=== PATIENT | male | born 1955 | race Caucasian/White ===

== ENCOUNTER 2025-01-27 09:00 | Day surgery (SDC) | payer OTHER ==
[2025-01-19 14:33] VITALS: BP 127/78
[~2025-01-27] VITALS: Ht 182.9 cm; Wt 77.1 kg
[~2025-01-27 09:00] MED LIST: CHLORTHALIDONE25 MG; CRESTOR; DEPAKOTE ER500 MG; LOTREL 10-40 M1 EACH; LOTREL 5-20 MG1 CAP; OSEL75CA PO; SYNTHROID; TECTURNA
[2025-01-27] MEDS ORDERED: ENOXAPARIN SODIUM 40 MG/0.4 ML SYRINGE SUBCUTANEO ONE (15:00)
[2025-01-27] MEDS ORDERED: BUPIVACAINE HCL 30 ML VIAL IJ ONE (15:00)
[2025-01-27] MEDS ORDERED: METRONIDAZOLE/SODIUM CHLORIDE 500 MG/100 ML PIGGYBACK IV ONE (15:00)
[2025-01-27] MEDS ORDERED: CEFTRIAXONE SODIUM 2,000 MG VIAL IV ONE (15:00)
[2025-01-27] MEDS ORDERED: POLY119PG PO (15:58)
[2025-01-27] MEDS ORDERED: PERCOCET 5-3251 EACH PO (15:58)
[2025-01-27] MEDS ORDERED: CELEBREX200MG PO (15:58)
[2025-01-27] MEDS ORDERED: NEURONTIN300 MG PO (15:58)
== END 2025-01-27 19:20 | disposition home or self-care (01) ==
LOC: CIR.AMB 09:00
PROVIDERS: ATTEND Surgery
DX: K40.90 Unilateral inguinal hernia, without obstruction or gangrene, not specified as recurrent (principal)
CPT/HCPCS: 49650; C1781